=== PATIENT | male | born 1990 | race Caucasian/White ===

== ENCOUNTER 2021-11-21 15:08 | Emergency (ER) | payer SELFPAY ==
[2021-11-21 15:35] VITALS: BP 145/74; PULSE 61; TEMP 97.9; BMI 26.5
[2021-11-21] MEDS ORDERED: DIPHTH,PERTUSS(ACELL),TET 0.5 ML DISP.SYRIN IM ONE ×2 (16:27)
== END 2021-11-21 18:55 | disposition home or self-care (01) ==
LOC: JERFT 15:08
PROC: 3E0234Z Introduction of Serum, Toxoid and Vaccine into Muscle, Percutaneous Approach (ICD-10-PCS; principal; 2021-11-21)
DX: S51.011A Laceration without foreign body of right elbow, initial encounter (principal); W26.8XXA Contact with other sharp object(s), not elsewhere classified, initial encounter
CPT/HCPCS: 90715; 99284-25